=== PATIENT | female | born 1960 | race African-American/Black ===

== ENCOUNTER 2019-12-01 09:00 | Inpatient (IN) | payer OTHER ==
[~2019-12-01] VITALS: Ht 170.2 cm; Wt 79.4 kg
[2019-12-01] MEDS ORDERED: VANCOMYCIN 1 G PREMIX 200 ML IV ONE (10:15)
[2019-12-01] MEDS ORDERED: PIPERACILLIN/TAZ 3.375G PREMIX 50 ML IV ONE (10:15)
[2019-12-01] MEDS ORDERED: SODIUM CHLORIDE 0.9% 1000ML BAG (SEPSIS BOLUS) IV ONE (10:15)
[2019-12-01 10:18] LABS: HEMATOCRIT. 46.1 % (36.0-48.0); HEMOGLOBIN. 14.5 g/dL (12.0-16.0); MEAN CORPUSCULAR HEMOGLOBIN 25.3 pg (28.0-32.0); MEAN CORPUSCULAR VOLUME 80.5 fL (81.0-99.0); MEAN PLATELET VOLUME 10.3 fl (7.4-10.4); PLATELET 241 x1000/uL (130-400); RED BLOOD CELL COUNT 5.72 mill/uL (4.2-5.4); RED CELL DISTRIBUTION WIDTH 14.5 % (11.6-14.6)
[2019-12-01 10:24] LABS: CHLORIDE 91 mEq/L (98-107)
[2019-12-01 10:59] LABS: PLATELET ESTIMATE NORMAL
[2019-12-01] MEDS ORDERED: SODIUM CHLORIDE 0.9% 1,000 ML IV ONE ×2 (11:15)
[2019-12-01] MEDS ORDERED: INSULIN REGULAR (DRIP) 100 UNITS in SODIUM CHLORIDE 0.9% 99 ML IV ONE ×5 (12:00→12:30)
[2019-12-01] MEDS ORDERED: ONDANSETRON HCL 4MG/2ML INJ IV PRN (12:00)
[2019-12-01 13:01] LABS: PHOSPHORUS 6.2 mg/dL (2.5-4.9)
[2019-12-01 13:52] LABS: BG BASE EXCESS -18.8 mmol/L (-2.0-2.0); BG CARBOXYHEMOGLOBIN 0.1 % (0.5-1.5); BG DEOXYHEMOGLOBIN 4.7 % (0.0-5.0); BG FRACTION INSPIRED OXYGEN 21; BG HCO3 ACT 7.8 mmol/L (22.0-26.0); BG METHEMOGLOBIN 0.4 % (0.0-1.5); BG OXYGEN SATURATION 95.3 % (92.0-98.5); BG OXYHEMOGLOBIN 94.8 % (94.0-97.0); BG PCO2 21.6 mmHg (35.0-45.0); BG PH 7.175 (7.350-7.450); BG PO2 84.1 mmHg (75.0-100.0); BG SAMPLE SITE RIGHT BRACHIAL; BG VENT MODE ROOM AIR
[2019-12-01 14:03] LABS: BETA HYDROXYBUTYRATE 18.8 mMol/L (0.0-0.3)
[2019-12-01 16:09] LABS: CHLORIDE 112 mEq/L (98-107)
[2019-12-01] MEDS ORDERED: INSULIN REGULAR (DRIP) 100 UNITS in SODIUM CHLORIDE 0.9% 99 ML IV SCH (18:19)
[2019-12-01 18:23] LABS: CLARITY URINE CLEAR (CLEAR); COLOR URINE YELLOW (YELLOW); KETONES URINE 3+ (NEGATIVE); LEUKOCYTE ESTERASE URINE NEGATIVE (NEGATIVE); NITRITE URINE NEGATIVE (NEGATIVE); OCCULT BLOOD URINE NEGATIVE (NEGATIVE); PROTEIN URINE NEGATIVE (NEGATIVE); SPECIFIC GRAVITY URINE 1.024 (1.005-1.030); UROBILINOGEN URINE 0.2 E.U./dL (0.2-1.0)
[2019-12-01] MEDS ORDERED: DEXTROSE 50% WATER 50ML SYRINGE IV PRN ×2 (18:30)
[2019-12-01] MEDS: SODIUM CHLORIDE 0.9% 1,000 ML IV SCH ×2 (18:36→22:53)
[2019-12-01] MEDS: BLOOD SUGAR DIAGNOSTIC STRIP TEST SCH ×6 (18:37→23:37)
[2019-12-01 18:49] LABS: *AMPHETAMINES SCREEN URINE NEGATIVE (NEGATIVE); *BARBITURATES SCREEN URINE NEGATIVE (NEGATIVE); *BENZODIAZEPINES SCREEN URINE NEGATIVE (NEGATIVE); *COCAINE SCREEN URINE NEGATIVE (NEGATIVE); METHADONE URINE SCREEN NEGATIVE (NEGATIVE); OPIATES URINE SCREEN NEGATIVE (NEGATIVE)
[2019-12-01 18:50] LABS: CANNABINOID URINE SCREEN NEGATIVE (NEGATIVE); PHENCYCLIDINE URINE SCREEN NEGATIVE (NEGATIVE)
[2019-12-01 19:00] VITALS: BP_SYST 123; BP_SYST 128; BP_DIAS 68; BP_DIAS 70
[2019-12-01 19:06] LABS: PHOSPHORUS 2.5 mg/dL (2.5-4.9)
[2019-12-01 20:00] VITALS: BP 128/68
[2019-12-01] MEDS ORDERED: CEFTRIAXONE 1 G PREMIX 50 ML IV SCH (20:00)
[2019-12-01 21:00] VITALS: BP 134/66
[2019-12-01 21:35] LABS: CHLORIDE 119 mEq/L (98-107)
[2019-12-01 22:00] VITALS: BP 143/45
[2019-12-01 23:00] VITALS: BP 128/76
[2019-12-01] MEDS: ACETAMINOPHEN 325MG TABLET PO PRN (23:41)
[2019-12-02] VITALS (24 sets, daily range): BP systolic 122–156; BP diastolic 59–120
[2019-12-02] MEDS ORDERED: POTASSIUM CHLORIDE INJ 60 MEQ in DEXT 5% WATER 500 ML IV SCH ×2
[2019-12-02] MEDS: BLOOD SUGAR DIAGNOSTIC STRIP TEST SCH ×13 (00:14→22:57)
[2019-12-02 02:09] LABS: CHLORIDE 121 mEq/L (98-107)
[2019-12-02] MEDS: SODIUM CHLORIDE 0.9% 1,000 ML IV SCH ×2 (02:48→06:33)
[2019-12-02 05:51] LABS: HEMATOCRIT. 35.3 % (36.0-48.0); HEMOGLOBIN. 12.3 g/dL (12.0-16.0); MEAN CORPUSCULAR HEMOGLOBIN 25.6 pg (28.0-32.0); MEAN CORPUSCULAR VOLUME 73.5 fL (81.0-99.0); PLATELET 164 x1000/uL (130-400); RED CELL DISTRIBUTION WIDTH 13.8 % (11.6-14.6)
[2019-12-02 06:25] LABS: CHLORIDE 125 mEq/L (98-107)
[2019-12-02 06:45] LABS: PHOSPHORUS 1.4 mg/dL (2.5-4.9)
[2019-12-02 07:04] LABS: PLATELET ESTIMATE NORMAL
[2019-12-02] MEDS ORDERED: DEXTROSE 50% WATER 50ML SYRINGE IV PRN ×3 (07:15→19:15)
[2019-12-02] MEDS: INSULIN LISPRO 100 UNITS/ML SUBCUT SCH ×3 (08:20→18:55)
[2019-12-02] MEDS: PANTOPRAZOLE SODIUM 40 MG/VIAL IV SCH (09:34)
[2019-12-02] MEDS ORDERED: INSULIN GLARGINE UD 100 UNITS/ML SYR SUBCUT SCH (10:00)
[2019-12-02 10:36] LABS: CHLORIDE 125 mEq/L (98-107)
[2019-12-02] MEDS ORDERED: POTASSIUM PHOS,M-BASIC-D-BASIC 20 MMOL in DEXT 5% WATER 250 ML IV SCH (11:00)
[2019-12-02] MEDS ORDERED: PNEUMOCOCCAL 23-VAL P-SAC VAC 0.5 ML IM ONE (12:00)
[2019-12-02] MEDS ORDERED: INFLUENZA VIRUS VACCINE(AFLURIA) 0.5ML SYR IM ONE (12:00)
[2019-12-02 14:46] LABS: CHLORIDE 120 mEq/L (98-107)
[2019-12-02 14:58] LABS: PHOSPHORUS 2.4 mg/dL (2.5-4.9)
[2019-12-02] MEDS ORDERED: INSULIN LISPRO 100 UNITS/ML SUBCUT SCH (17:50)
[2019-12-02 18:10] LABS: CHLORIDE 121 mEq/L (98-107)
[2019-12-02] MEDS ORDERED: SODIUM CHLORIDE 0.9% 1,000 ML IV SCH (19:15)
[2019-12-02] MEDS: CEFTRIAXONE 1 G PREMIX 50 ML IV SCH (21:04)
[2019-12-02] MEDS: INSULIN REGULAR (DRIP) 100 UNITS in SODIUM CHLORIDE 0.9% 100 ML IV SCH (21:23)
[2019-12-02] MEDS: DEXT 5%/0.45% NACL 1000ML 1,000 ML IV SCH (22:57)
[2019-12-02 23:44] LABS: CHLORIDE 126 mEq/L (98-107)
[2019-12-03] VITALS (26 sets, daily range): BP systolic 125–158; BP diastolic 61–110
[2019-12-03] MEDS: BLOOD SUGAR DIAGNOSTIC STRIP TEST SCH ×23 (00:09→22:15)
[2019-12-03] MEDS: ACETAMINOPHEN 325MG TABLET PO PRN ×2 (00:14→17:52)
[2019-12-03 04:17] LABS: BASOPHILS % 0.7 % (0.0-2.0); HEMATOCRIT. 32.8 % (36.0-48.0); HEMOGLOBIN. 11.4 g/dL (12.0-16.0); LYMPHOCYTES % 9.1 % (20.0-50.0); MEAN CORPUSCULAR HEMOGLOBIN 25.1 pg (28.0-32.0); MEAN CORPUSCULAR VOLUME 72.2 fL (81.0-99.0); MEAN PLATELET VOLUME 8.9 fl (7.4-10.4); MONOCYTES % 7.1 % (2.0-8.0); NEUTROPHILS % 83.1 % (40.0-76.0); PLATELET 147 x1000/uL (130-400); RED BLOOD CELL COUNT 4.54 mill/uL (4.2-5.4); RED CELL DISTRIBUTION WIDTH 13.8 % (11.6-14.6)
[2019-12-03 04:19] LABS: CHLORIDE 126 mEq/L (98-107)
[2019-12-03 04:25] LABS: PHOSPHORUS 1.5 mg/dL (2.5-4.9)
[2019-12-03] MEDS: DEXT 5%/0.45% NACL 1000ML 1,000 ML IV SCH ×3 (06:58→22:45)
[2019-12-03] MEDS ORDERED: POTASSIUM PHOS,M-BASIC-D-BASIC 15 MMOL in DEXT 5% WATER 245 ML IV SCH (09:00)
[2019-12-03] MEDS: PANTOPRAZOLE SODIUM 40 MG/VIAL IV SCH (09:13)
[2019-12-03 10:11] LABS: CHLORIDE 123 mEq/L (98-107)
[2019-12-03] MEDS ORDERED: POTASSIUM CHLORIDE INJ 40 MEQ in DEXT 5% WATER 250 ML IV SCH (14:00)
[2019-12-03 15:50] LABS: CHLORIDE 122 mEq/L (98-107)
[2019-12-03 18:01] LABS: CHLORIDE 122 mEq/L (98-107)
[2019-12-03] MEDS: CEFTRIAXONE 1 G PREMIX 50 ML IV SCH (21:12)
[2019-12-03 21:38] LABS: CHLORIDE 122 mEq/L (98-107)
[2019-12-03] MEDS: INSULIN REGULAR (DRIP) 100 UNITS in SODIUM CHLORIDE 0.9% 100 ML IV SCH (22:49)
[2019-12-04] VITALS (17 sets, daily range): BP systolic 119–163; BP diastolic 55–96
[2019-12-04] MEDS: BLOOD SUGAR DIAGNOSTIC STRIP TEST SCH ×10 (00:26→12:14)
[2019-12-04] MEDS: ACETAMINOPHEN 325MG TABLET PO PRN ×2 (02:34→13:45)
[2019-12-04 02:45] LABS: CHLORIDE 120 mEq/L (98-107)
[2019-12-04] MEDS ORDERED: KCL 20MEQ/100ML PREMIX 100 ML IV SCH (03:00)
[2019-12-04 04:12] LABS: BASOPHILS % 0.7 % (0.0-2.0); EOSINOPHILS % 0.4 % (0.0-5.0); HEMOGLOBIN. 11.7 g/dL (12.0-16.0); LYMPHOCYTES % 20.7 % (20.0-50.0); MEAN CORPUSCULAR HEMOGLOBIN 25.4 pg (28.0-32.0); MEAN PLATELET VOLUME 8.9 fl (7.4-10.4); MONOCYTES % 10.4 % (2.0-8.0); NEUTROPHILS % 67.8 % (40.0-76.0); PLATELET 137 x1000/uL (130-400); RED BLOOD CELL COUNT 4.59 mill/uL (4.2-5.4); RED CELL DISTRIBUTION WIDTH 13.4 % (11.6-14.6)
[2019-12-04 04:18] LABS: CHLORIDE 120 mEq/L (98-107)
[2019-12-04 04:24] LABS: PHOSPHORUS 1.5 mg/dL (2.5-4.9)
[2019-12-04] MEDS: DEXT 5%/0.45% NACL 1000ML 1,000 ML IV SCH (06:24)
[2019-12-04] MEDS ORDERED: DEXTROSE 50% WATER 50ML SYRINGE IV PRN (07:00)
[2019-12-04] MEDS ORDERED: POTASSIUM PHOS,M-BASIC-D-BASIC 10 MMOL in DEXT 5% WATER 246.6667 ML IV NR (08:00)
[2019-12-04] MEDS ORDERED: MAGNESIUM 2 G PREMIX 50 ML IV NR (08:00)
[2019-12-04] MEDS: INSULIN LISPRO 100 UNITS/ML SUBCUT SCH ×2 (08:07→12:30)
[2019-12-04] MEDS: PANTOPRAZOLE SODIUM 40 MG/VIAL IV SCH (08:17)
[2019-12-04 09:27] LABS: CHLORIDE 121 mEq/L (98-107)
[2019-12-04] MEDS ORDERED: INSULIN GLARGINE UD 100 UNITS/ML SYR SUBCUT SCH (10:00)
== END 2019-12-04 15:20 | disposition home or self-care (01) | DRG 871 ==
LOC: ER 09:00 → CVICU 11:49 → EDBEDREQ 11:53 → EDBEDREQSVC 11:53 → EDBEDREQTM 11:53 → ENRESERV 17:27
PROVIDERS: ADMIT Internal Medicine; ATTEND Internal Medicine
DX: A41.9 Sepsis, unspecified organism (principal); E11.10 Type 2 diabetes mellitus with ketoacidosis without coma; E44.1 Mild protein-calorie malnutrition; E87.1 Hypo-osmolality and hyponatremia; E87.8 Other disorders of electrolyte and fluid balance, not elsewhere classified; T68.XXXA Hypothermia, initial encounter; Z68.27 Body mass index [BMI] 27.0-27.9, adult; Z79.899 Other long term (current) drug therapy
CPT/HCPCS: 36415; 36600; 71045; 80048; 80053; 80305; 81003; 82010; 82375; 82805; 82962; 83036; 83605; 83735; 84100; 84145; 84484; 85025; 93005; 93970; 97162; 99291; C9113; J0696; J1815; J2543; J3370; J3475; J3480; J3490; J7030; J7050; J7060